=== PATIENT | female | born 1945 | race Caucasian/White ===

== ENCOUNTER 2020-05-22 06:16 | Day surgery (SDC) | payer MEDICARE ==
[2020-05-18 11:36] VITALS: BMI 25.2
[2020-05-22] MEDS ORDERED: SODIUM CHLORIDE 0.9% 1,000 ML in EMPTY BAG 1 BAG IV ONE (06:18)
[2020-05-22] MEDS ORDERED: NITROGLYCERIN SL TABS 0.4 MG TAB SUBLINGUAL PRN (06:18)
[2020-05-22] MEDS ORDERED: ALPRAZolam 0.5 MG TAB PO PRN (06:18)
[2020-05-22] MEDS ORDERED: ALPRAZolam 0.25 MG TAB PO PRN (06:18)
[2020-05-22] MEDS ORDERED: ATORVASTATIN 80 MG TAB PO ONE (07:00)
[2020-05-22] MEDS ORDERED: ASPIRIN 325 MG TAB PO ONE (07:00)
[2020-05-22 07:03] VITALS: RESP 16; TEMP 98.2
[2020-05-22 07:03] LABS: Anisocytosis Slight; Basophils # (A) 0.1 k/uL (0-0.2); Basophils % (A) 1 %; Eosinophils # (A) 0.3 k/uL (0-0.7); Eosinophils % (A) 3 %; HCT 37.4 % (34.0-46.0); HGB 11.6 gm/dL (11.4-16.0); Hypochromasia Marked; Lymphocytes # (A) 4.1 k/uL (1.0-4.8); Lymphocytes % (A) 42 %; MCH 28.5 pg (25.0-35.0); MCV 91.8 fL (80.0-100.0); Mean Platelet Volume 8.2; Monocytes # (A) 0.7 k/uL (0-1.0); Monocytes % (A) 8 %; Neutrophils # (A) 4.3 k/uL (1.3-7.7); Neutrophils % (A) 45 %; Platelet Count 399 k/uL (150-450); RBC 4.08 m/uL (3.80-5.40); RDW 18.8 % (11.5-15.5); WBC 9.7 k/uL (3.8-10.6)
[2020-05-22] MEDS ORDERED: SODIUM CHLORIDE 0.9% 100 ML IV ONE (07:07)
[2020-05-22 07:12] LABS: Calcium 9.1 mg/dL (8.4-10.2); Potassium 4.4 mmol/L (3.5-5.1)
[2020-05-22] MEDS ORDERED: fentaNYL (PF) 50 MCG/ML 2 ML AMP ONE (07:14)
[2020-05-22] MEDS ORDERED: BENZOCAINE SPRAY 1 CAN MUCOUS MEM ONE ×2 (07:23)
[2020-05-22] MEDS ORDERED: IV FLUID CONTINUATION 1,000 ML IV ONE (07:24)
[2020-05-22] MEDS ORDERED: fentaNYL (PF) 50 MCG/ML 2 ML AMP IV ONE (07:32)
[2020-05-22] MEDS ORDERED: MIDAZOLAM 2 MG/2 ML VIAL IV ONE (07:32)
[2020-05-22] MEDS ORDERED: LIDOCAINE 1% INJ 10MG/ML (20 ML MDV) ONE (07:40)
[2020-05-22] MEDS ORDERED: IV FLUID CONTINUATION 900 ML IV ONE (07:59)
[2020-05-22] MEDS ORDERED: LIDOCAINE 1% INJ 10MG/ML (20 ML MDV) SQ ONE (08:01)
[2020-05-22] MEDS ORDERED: IOPAMIDOL-370 100ML BTL INJ ONE (08:11)
[2020-05-22] MEDS ORDERED: RX INFO: IV CONTRAST WAS GIVEN 1 EACH MISC MISCELLANE PRN (08:20)
[2020-05-22] MEDS ORDERED: SODIUM CHLORIDE 0.9% 1,000 ML IV SCH (08:30)
--- NOTE | 2020-05-22 08:58 | CC ---
CARDIAC CATHETERIZATION REPORT REFERRING PHYSICIAN: Dr. Zully Yanez. INDICATION: Aortic stenosis. PROCEDURE NOTE: After obtaining informed consent, left heart catheterization and coronary angiogram were performed via the right femoral artery using standard Vineet catheters. Patient tolerated the procedure well without any obvious immediate complication. A femoral angiogram was performed and Angio-Seal will be deployed for hemostasis. Patient received moderate conscious sedation. Total sedation time was 15 minutes. FINDINGS: HEMODYNAMICS: Left ventricular end-diastolic pressure is 18 mm. There is a peak to peak gradient of 23 mm across the valve. LEFT VENTRICULOGRAM: Not performed. ANGIOGRAPHIC DATA: LEFT MAIN CORONARY ARTERY: Left main coronary artery is a normal-sized vessel and is free of stenosis. Divides into left anterior descending coronary artery and circumflex coronary artery. LAD and its branches, circumflex coronary artery and its branches are free of significant stenosis. Right coronary artery is a large dominant vessel and is free of significant disease. CONCLUSIONS: 1. No significant coronary artery disease. 2. Mild to moderate aortic stenosis. PLAN: I reviewed angiographic data with the patient and advised her on continued watchful waiting at this time. We are over-estimating the degree of aortic stenosis on the transthoracic echo. MMODL / IJN: [id number] /
--- NOTE | 2020-05-22 09:13 | ECHOT ---
TRANSESOPHAGEAL ECHOCARDIOGRAM REFERRING PHYSICIAN: Dr. Zully Yanez. INDICATION: Shortness of breath in a patient with known aortic stenosis. PROCEDURE NOTE: After obtaining informed consent, transesophageal echocardiogram is performed in left lateral position using an Omni plane probe. Local and IV sedation were obtained using Xylocaine spray, intravenous Versed and fentanyl. The patient tolerated the procedure well without any obvious immediate complications. FINDINGS: 1. Aortic valve: Aortic valve appears heavily calcified with mild to moderate restriction in leaflet mobility. It appears like a bicuspid aortic valve with poorly formed third leaflet that is heavily calcified. There is mild eccentric jet of aortic regurgitation noted by planimetry. The valve area comes around 1.5-1.6 squared cm. The valve area is not consistent with a gradient that we obtain on transthoracic echo. 2. Mitral valve: Mitral valve appears anatomically normal. There is moderate mitral regurgitation noted. 3. Tricuspid valve shows mild to moderate tricuspid regurgitation. 4. Interatrial septum: There is no evidence of [id number] shunt by color-flow Doppler or [id number]-qw-[id number] shunt by agitated saline contrast study. 5. Left atrium, right atrium, right ventricle are within normal limits. Left ventricle has normal size and systolic function. CONCLUSIONS: 1. Mild aortic stenosis with heavily calcified aortic valve without significant restriction in leaflet mobility. 2. Mild aortic regurgitation. 3. Moderate mitral regurgitation. 4. Normal left ventricular systolic function. PLAN: I advised the patient to undergo cardiac catheterization to rule out significant obstructive coronary artery disease, as her symptoms are not quite explained by the degree of underlying valvular heart disease. MMODL / IJN: [id number] /
[2020-05-22 12:18] VITALS: BP 136/60; PULSE 54
--- NOTE | 2020-05-24 10:04 | CDI ---
Outpatient Documentation Clarification Form Date: 05/24/20 CDS/Taco Maker Name: Jennifer Shelton Phone: If any questions, call Malia Ramirez Port Crane Operator at [phone] Patient Name: Lovely Schmidt Admit Date: 05/22/20 Discharge Date: 05/22/20 ATTENTION: The [facility] Coding Staff appreciate your assistance in clarifying documentation. Please respond to the clarification below the line at the bottom and electronically sign. The [facility] Coding staff will review the response and follow-up if needed. Please note: Queries are made part of the Legal Health Record. If you have any questions, please contact the Port Crane Operator. Dear Dr. Mari, Please provide clarification as to the procedure(s) performed. Charges indicate all three elements of the TERI was performed but there is no documentation on the report for the doppler pulse waive and velocity flow portions of the study. Please clarify. Thank you for your kind consideration. doppler pulse wave flow velocity was done on this study___ MTDD
== END 2020-05-22 13:43 | disposition home or self-care (01) ==
LOC: CATHCVL 06:16
PROVIDERS: ATTEND Internal Medicine Cardiovascular Disease
DX: I08.3 Combined rheumatic disorders of mitral, aortic and tricuspid valves (principal); I47.1 Supraventricular tachycardia; R93.1 Abnormal findings on diagnostic imaging of heart and coronary circulation; Z82.49 Family history of ischemic heart disease and other diseases of the circulatory system; Z79.82 Long term (current) use of aspirin; Z79.899 Other long term (current) drug therapy
CPT/HCPCS: 93312; 93320; 93325; 93458; 80048; 85025; C1769 ×2; C1760; C1894; J2250; J2001; J3010; Q9967

== ENCOUNTER → 2023-04-23 | Outpatient (CLI) | payer MEDICARE ==
[2023-04-23 09:36] LABS: Basophils # (A) 0.1 k/uL (0-0.2); Basophils % (A) 1 %; Eosinophils # (A) 0.2 k/uL (0-0.7); Eosinophils % (A) 2 %; HCT 40.5 % (34.0-46.0); HGB 12.9 gm/dL (11.4-16.0); Lymphocytes # (A) 3.8 k/uL (1.0-4.8); Lymphocytes % (A) 32 %; MCH 31.5 pg (25.0-35.0); MCV 98.4 fL (80.0-100.0); Mean Platelet Volume 8.5; Monocytes # (A) 0.8 k/uL (0-1.0); Monocytes % (A) 7 %; Neutrophils # (A) 7.1 k/uL (1.3-7.7); Neutrophils % (A) 58 %; Platelet Count 387 k/uL (150-450); RBC 4.11 m/uL (3.80-5.40); RDW 14.3 % (11.5-15.5); WBC 12.1 k/uL (3.8-10.6)
[2023-04-23 09:50] LABS: ALT 27 U/L (4-34); AST 29 U/L (14-36); African American GFR (CKD) >90 (>60 ml/min/1.73 sqM); Albumin/Globulin Ratio 1.5; Alkaline Phosphatase 79 U/L (38-126); Anion Gap 5 mmol/L; Blood Urea Nitrogen 19 mg/dL (7-17); Calcium 9.4 mg/dL (8.4-10.2); Carbon Dioxide 30 mmol/L (22-30); Chloride 104 mmol/L (98-107); Globulin 2.7 g/dL; Glucose 82 mg/dL (74-99); INR 0.9 (<1.2); Non-African American GFR(CKD) 78 (>60 ml/min/1.73 sqM); Partial Thromboplastin Time 25.4 sec (22.0-30.0); Potassium 4.7 mmol/L (3.5-5.1); Sodium 139 mmol/L (137-145); Total Bilirubin 0.5 mg/dL (0.2-1.3); Total Protein 6.7 g/dL (6.3-8.2)
[2023-04-23 09:51] LABS: Magnesium 2.2 mg/dL (1.6-2.3)
[2023-04-23 10:23] LABS: Appearance,Urine Clear (Clear); Bilirubin,Urine Negative (Negative); Blood,Urine Negative (Negative); Color,Urine Yellow; Glucose,Urine (UA) Negative (Negative); Ketones,Urine Negative (Negative); Leukocyte Esterase,Urine Negative (Negative); Nitrite,Urine Negative (Negative); Protein,Urine Negative (Negative); Specific Gravity,Urine 1.021 (1.001-1.035)
--- NOTE | 2023-04-23 11:48 | CT ---
EXAMINATION TYPE: CT TAVR Planning DATE OF EXAM: 04/23/2023 HISTORY: TAVR CT DLP: 1524.6 mGycm Automated Exposure Control for Dose Reduction was Utilized. CONTRAST: CT scan of the chest, abdomen and pelvis is performed with IV Contrast, patient injected with 125 mL of Isovue 370. COMPARISON: None TECHNIQUE: Helical imaging obtained through the chest, abdomen and pelvis during arterial phase alex diya administration of radiographic contrast intravenously. FINDINGS: See report from [employer] regarding preprocedural planning CHEST: Lower Neck and Thyroid: No significant findings Lungs: No significant findings Central Airway: No significant findings Pleura: No significant findings Pulmonary Arteries: No significant findings Heart and Pericardium: No significant findings Lymph Nodes: No significant findings Mediastinum & Esophagus: No significant findings ABDOMEN/PELVIS: Please note arterial phase of the imaging limits detailed evaluation of the solid abdominal organs. Liver: No significant findings Spleen: No significant findings Kidneys: No significant findings Adrenal Glands: No significant findings Pancreas: No significant findings Gallbladder: No significant findings Bowel and Mesentery: No significant findings Lymph Nodes: No significant findings Urinary Bladder: No significant findings Pelvic Organs: 4.2 cm left ovarian cyst. Consider ultrasound correlation. Other: No significant findings Other Lines/Tubes/Devices/Hardware: None IMPRESSION: 4.2 cm left ovarian cyst. Consider ultrasound correlation.
--- NOTE | 2023-04-23 13:29 | US ---
EXAMINATION TYPE: US carotid duplex BILAT DATE OF EXAM: 04/23/2023 COMPARISON: NONE CLINICAL INDICATION: Female, 78 years old with history of R55; PreOp for TAVR. No HTN. No tia. TECHNIQUE: Carotid duplex ultrasound examination. Indirect Doppler criteria was utilized. FINDINGS: EXAM MEASUREMENTS: RIGHT: Peak Systolic Velocity (PSV) cm/sec ----- Right CCA: 63.6 ----- Right ICA: 91.8 ----- Right ECA: 55.7 ICA/CCA ratio: 1.4 RIGHT: End Diastole cm/sec ----- Right CCA: 19.1 ----- Right ICA: 33.5 ----- Right ECA: 0.0 LEFT: Peak Systolic Velocity (PSV) cm/sec ----- Left CCA: 81.2 ----- Left ICA: 100.8 ----- Left ECA: 71.3 ICA/CCA ratio: 1.2 LEFT: End Diastole cm/sec ----- Left CCA: 18.6 ----- Left ICA: 33.5 ----- Left ECA: 0.0 VERTEBRALS (direction of flow): Right Vertebral: Antegrade Left Vertebral: Antegrade Rhythm: Arrhythmia FRAME AND SCRAP CRUSHER NOTES: Bilateral wall thickening. Small amount of plaque in bilateral bulbs. No elevate d velocities or significant stenosis. IMPRESSION: No evidence for hemodynamically significant stenosis. Criteria for Assigning % of Stenosis / Diameter reduction (Estimation based on the indirect measurements of the internal carotid artery velocities (ICA PSV). 1. Normal (no stenosis)=ICA PSV < 125 cm/s: ratio < 2.0: ICA EDV<40 cm/s. 2. Less than 50% stenosis=ICA PSV < 125 cm/s: ratio < 2.0: ICA EDV<40 cm/s. 3. 50 to 69% stenosis=ICA PSV of 125 to 230 cm/s: ration 2.0 ? 4.0: ICA EDV 40-100 cm/s. 4. Greater than 70% stenosis to near occlusion= ICA PSV > 230 cm/s: ratio > 4.0: ICA EDV > 100 cm/s. 5. Near occlusion= ICA PSV velocities may be low or undetectable: variable ratio and ICA EDV. 6. Total occlusion=unable to detect flow.
[2023-04-23 16:20] LABS: NT-Pro-B-Type Natriuretic Pept 1000 pg/mL
[2023-04-23 16:53] LABS: Hepatitis A Antibody IgM Nonreactive; Hepatitis B Core IgM Nonreactive; Hepatitis B Surface Antigen Nonreactive; Hepatitis C IgG Antibody Nonreactive
[2023-04-23 21:16] LABS: Chol/HDL Ratio 3.56 Ratio; LDL Cholesterol,Calculated 143.6 mg/dL (0.0-131.0)
== END | disposition home or self-care (01) ==
LOC: LABWHC1 08:45
PROVIDERS: ATTEND Thoracic Surgery (Cardiothoracic Vascular Surgery)
DX: Z01.818 Encounter for other preprocedural examination (principal); Z51.81 Encounter for therapeutic drug level monitoring; I35.1 Nonrheumatic aortic (valve) insufficiency; I35.0 Nonrheumatic aortic (valve) stenosis; E87.8 Other disorders of electrolyte and fluid balance, not elsewhere classified; E11.9 Type 2 diabetes mellitus without complications; N28.9 Disorder of kidney and ureter, unspecified; E78.5 Hyperlipidemia, unspecified; E07.9 Disorder of thyroid, unspecified; R35.0 Frequency of micturition; Z79.899 Other long term (current) drug therapy; R58 Hemorrhage, not elsewhere classified; Z79.01 Long term (current) use of anticoagulants
CPT/HCPCS: 94150; 83880; 80061; 80053; 80074; 84443; 83735; 85025; 85610; 85730; 81003; 87086; 83036; 93880; 71275; 36415 ×2; 74174; 93005; Q9967

== ENCOUNTER → 2023-05-30 | Outpatient (CLI) | payer MEDICARE ==
[2023-05-30 10:14] LABS: INR 0.9 (<1.2); Partial Thromboplastin Time 24.9 sec (22.0-30.0); Prothrombin Time 10.1 sec (9.0-12.0)
[2023-05-30 12:47] LABS: HCT 38.6 % (37.2-46.3); HGB 12.3 d/dL (12.0-15.0); MCH 31.6 pg (27.0-32.0); MCHC 31.9 d/dL (32.0-37.0); MCV 99.2 FL (80.0-97.0); Mean Platelet Volume 11.3 FL (9.5-12.2); NRBC Per 100 WBC 0 X 10*3/uL (0.00-0.01); Platelet Count 353 X 10*3/uL (140-440); RBC 3.89 X 10*6/uL (4.10-5.20); RDW 14.6 % (11.5-14.5); WBC 11.18 X 10*3/uL (4.50-10.00)
[2023-05-30 12:56] LABS: ALT 42 U/L (8-44); AST 32 U/L (13-35); Albumin 3.9 d/dL (3.8-4.9); Albumin/Globulin Ratio 2.05 Ratio (1.60-3.17); Alkaline Phosphatase 70 U/L (41-126); BUN/Creat Ratio 17.62 Ratio (12.00-20.00); Blood Urea Nitrogen 14.1 mg/dL (9.0-27.0); Calcium 9.2 mg/dL (8.7-10.3); Carbon Dioxide 27.5 mmol/L (21.6-31.8); Chloride 107 mmol/L (96-109); Globulin 1.9 d/dL (1.6-3.3); Glucose 85 mg/dL (70-110); Potassium 4.6 mmol/L (3.5-5.5); Sodium 141 mmol/L (135-145); Total Bilirubin 0.4 mg/dL (0.3-1.2); Total Protein 5.8 d/dL (6.2-8.2)
== END | disposition home or self-care (01) ==
LOC: LABPAT 09:27
PROVIDERS: ATTEND Thoracic Surgery (Cardiothoracic Vascular Surgery)
DX: Z01.812 Encounter for preprocedural laboratory examination (principal); I35.0 Nonrheumatic aortic (valve) stenosis; Z79.899 Other long term (current) drug therapy
CPT/HCPCS: 80053; 85027; 85610; 85730

== ENCOUNTER 2023-06-03 07:46 | Inpatient (IN) | payer MEDICARE ==
[2023-06-03] MEDS ORDERED: ELECTROLYTE-A SOLUTION 1,000 ML with POTASSIUM CHLORIDE 100 MEQ, MAGNESIUM SULFATE 16 M... IV PRN ×5 (08:00)
[2023-06-03] MEDS ORDERED: ASPIRIN 325 MG TAB PO ONE (08:00)
[2023-06-03] MEDS ORDERED: INSULIN REGULAR 100 UNIT in SODIUM CHLORIDE 0.9% 100 ML IV PRN (08:00)
[2023-06-03] MEDS ORDERED: ATORVASTATIN 10 MG TAB PO ONE (08:00)
[2023-06-03] MEDS ORDERED: CLEVIDIPINE BUTYRATE 25 MG in EMPTY BAG 1 BAG IV PRN (08:00)
[2023-06-03] MEDS ORDERED: PROTAMINE SULFATE 250 MG in EMPTY BAG 1 BAG IV PRN (08:00)
[2023-06-03] MEDS ORDERED: METOPROLOL TARTRATE 25 MG TAB PO ONE (08:00)
[2023-06-03] MEDS ORDERED: TRANEXAMIC ACID 2,000 MG in SODIUM CHLORIDE 0.9% 80 ML IV PRN (08:00)
[2023-06-03] MEDS ORDERED: CLOPIDOGREL 75 MG TAB PO ONE (08:00)
[2023-06-03] MEDS ORDERED: NITROGLYCERIN-D5W PMX 25 MG/250 ML BTL IV PRN (08:00)
[2023-06-03] MEDS ORDERED: SODIUM CHLORIDE 0.9% 500 ML 500 ML INTRAARTER PRN (08:00)
[2023-06-03] MEDS ORDERED: LACTATED RINGERS 1,000 ML IV SCH ×2 (08:00→11:53)
[2023-06-03] MEDS ORDERED: SODIUM CHLORIDE 0.9% 1,000 ML IV ONE (08:11)
[2023-06-03 08:20] LABS: Glucose,Whole Blood 90 mg/dL (70-110)
[2023-06-03] MEDS ORDERED: MIDAZOLAM 2 MG/2 ML VIAL IV STA (09:13)
[2023-06-03] MEDS ORDERED: NEOSTIGMINE 1 MG/ML 10 ML VIAL ONE (09:54)
[2023-06-03] MEDS ORDERED: HEPARIN SODIUM,PORCINE 10,000 UNIT/ML 1 ML VIAL ONE (09:54)
[2023-06-03] MEDS ORDERED: PROTAMINE SULFATE 10 MG/ML 5 ML VIAL IV ONE (09:54)
[2023-06-03] MEDS ORDERED: SUCCINYLCHOLINE CHLORIDE 200 MG/10 ML VIAL IV ONE (09:54)
[2023-06-03] MEDS ORDERED: fentaNYL (PF) 50 MCG/ML 2 ML AMP ONE (09:54)
[2023-06-03] MEDS ORDERED: hydrALAZINE HCL 20 MG/ML 1 ML VIAL ONE (09:54)
[2023-06-03] MEDS ORDERED: LABETALOL SYRINGE 5 MG/ML (4 ML SYR) ONE (09:54)
[2023-06-03] MEDS ORDERED: PROPOFOL 10 MG/ML 20 ML VIAL IV ONE (09:54)
[2023-06-03] MEDS ORDERED: GLYCOPYRROLATE 0.2 MG/ML 2 ML VIAL ONE (09:54)
[2023-06-03] MEDS ORDERED: ROCURONIUM 10 MG/ML (5 ML VIAL) IV ONE (09:54)
[2023-06-03] MEDS ORDERED: LIDOCAINE 2% INJ 20 MG/ML (2 ML VIAL) ONE (09:54)
[2023-06-03] MEDS ORDERED: IOPAMIDOL-370 100ML BTL INJ ONE (10:50)
--- NOTE | 2023-06-03 11:31 | P.PCN ---
Date of Procedure: 06/03/23 Operative Findings: TRANSCATHETER AORITC VALVE REPLACEMENT OPERATIVE REPORT PROCEDURE PERFORMED: 1. Percutaneous Aortic Valve Implantation using a 29 mm Evolut Fx 2. Transesophageal echocardiography (performed by anesthesia) 3. Ultrasound guided access and repair of bilateral femoral artery access site by Perclose closure device. 4. Placement of temporary pacemaker wire. 5. Aortic root angiography INDICATIONS: 1. 78 year-old with a history of severe symptomatic aortic valve stenosis. The patient was experiencing shortness of breath consistent with NYHA class II PERFORMING PHYSICIANS: 1. Monico Laughlin MD Interventional Cardiology. 2. Gustavo Chou M.D., MD, Cardiothoracic Surgeon. SEDATION: General anesthesia provided by anesthesia, see separate note APPROACH: Bilateral femoral artery via percutaneous approach PROCEDURE DESCRIPTION: The patient was discussed at valve clinic with multidisciplinary approach with cardiothoracic surgeon as well as director of philanthropy and thought better treated with TAVR. Risks, benefits, and alternatives of the procedure had been explained to the patient who understood the risks and agreed to proceed. After consents were obtained, patient was brought to the transcatheter aortic valve implantation room in the cardiac farm laborer and general anesthesia was provided by the anesthesiologist (see separate report). Once full body sterile prep was performed, right subclavian venous access was obtained and a temporary pacemaker was screwed in, performed by cardiothoracic surgery. Pacing threshholds were checked and deemed appropriate. Next the left femoral artery waw accessed using a modified Seldinger technique, ultrasound guidance and micropuncture technique. A 6 Swiss Rabi sheath was placed in the left femoral artery. Next, a 6-Swiss pigtail catheter was advanced into the aorta and positioned in the aortic root, aortic root angiography was performed to determine optimal deployment angle. The right femoral artery was accessed using modified Seldinger technique, micropuncture technique and under direct ultrasound guidance. Femoral angiogram was done showing access in the common femoral artery and a 6Fr sheath was placed. Next preclose technique was performed using a [] Perclose. Next a 0.035 Safari wire was placed in the Aorta via a pigtail catheter. Next 14 Fr [place] sheath was placed. Next a 6F- AL1 catheter was advanced over a wire to the aortic root. A straight wire was advanced through the catheter and used to cross the severely stenotic valve. The AL1 was then exchanged for a 6Fr pigtail catheter and pressure measurements were obtained. The 0.035 Safari wire was then positioned in the apex. Next a 29 mm Evolut-Fx was advanced. The valve was then positioned across the aortic valve and confirmed with aortic root angiography. [The valve was initially partially deployed however needed repositioning and therefore was recaptured.] The valve was then deployed in proper position using slow deployment and with rapid pacing in conjuncture with aortic root angiography and TERI. The delivery system was withdrawn back into the arch and an aortic root injection in conjunction with TERI demonstrated a satisfactory result. There was moderate para valvular leak. The gradient across the valve was almost 18 mmHg on transgastric view was. At that point the right common femoral sheath was taken out and the right groin was closed using the two Perclose devices we initially placed with good hemostasis. Because the valve was constrained under fluoroscopy guidance and because of the gradient which was abnormal and the paravalvular leak which was moderate we decided to go ahead and do postdilatation of the valve. At that point we upgraded or 6-Swiss sheath over a stiff Safari wire into a 14-Swiss sheath. Subsequently the valve was crossed using pigtail catheter. After that we postdilated the valve using 24 mm balloon under rapid heart racing. Subsequently there was no evidence of any other significant abnormalities. And the paravalvular leak was improved as well as a gradient. Then we deployed 2 Perclose and we were able to achieve hemostasis. Please note that before we closed the left groin we did right common femoral artery angiogram from the left side and that showed good hemostasis on the right. There was also good hemostasis on the left. The procedure was completed was no complication The temporary venous pacemaker was sutured in place. The patient was then transported to the ICU in hemodynamically stable condition, requiring no pressor support. COMPLICATIONS: None RECOMMENDATIONS: The patient will be monitored in the ICU for hemodynamic and electrical stability. Patient will be on aspirin and Plavix.
[2023-06-03 11:50] LABS: Glucose,Whole Blood 106 mg/dL (70-110)
[2023-06-03] MEDS ORDERED: ALPRAZolam 0.25 MG TAB PO PRN (11:53)
[2023-06-03] MEDS ORDERED: ONDANSETRON 4 MG/2 ML VIAL IVP PRN (11:53)
[2023-06-03] MEDS ORDERED: ACETAMINOPHEN TAB 325 MG TAB PO PRN (11:53)
[2023-06-03] MEDS ORDERED: IPRATROPIUM-ALBUTEROL 3 ML NEB INHALATION PRN (11:53)
--- NOTE | 2023-06-03 11:53 | P.ANPRN ---
Procedure Note - Anesthesia - Invasive Line Left Arterial Line Time Out Performed: Yes Date of Procedure: 06/03/23 Location of Patient: PreOp Preparation: Sterile Prep, Sterile Dressing Arterial Line Location: Radial Ultrasound Used: No Purpose - Visualization and Identification of Vasculature: No Narrative: Central line placement per sterile protocol utilized. Informed consent obtained from the patient. Procedure was performed under complete aseptic precautions. The left wrist is slightly extended and placed on a roll of cloth. Radial artery palpated and appeared to have a intact collateral circulation. Front of the wrist was cleaned with ChloraPrep. It was draped and 2 mL of 1% lidocaine was infiltrated and ability into the front of the wrist. A 20-gauge two and half inch Arrow arterial catheter was inserted and a bright red blood/back was noticed. It was connected to the pressure monitoring line and the flashback was confirmed. The line was sutured into the skin. Tegaderm dressing was applied. Patient tolerated the procedure very well with no apparent complications. - TERI Intraop Pre Bypass TERI Intraop - Anesthesia Indication: Transcatheter aortic valve replacement Date of Procedure: 06/03/23 Pre-operative Diagnosis: Severe Aortic stenosis Post-operative Diagnosis: Severe aortic stenosis status post transcatheter aortic valve replacement Surgeon: Gustavo Chou Ejection Fraction: Normal Left Ventricle Hypertrophy: Yes R. Ventricle Function: Normal Aortic Valve: Severely calcified aortic valve noted. Mean gradient across the valve 62 mmHg and peak gradient 87 mmHg. Anatomy: Trileaflet Aortic Stenosis: Severe Aortic Regurgitation: Mild Mitral Stenosis: None Mitral Regurgitation: Mild Tricuspid Stenosis: None Tricuspid Regurgitation: Trace Pulmonic Stenosis: None Pulmonic Regurgitation: None R. Atrial Dilation: No R. Atrial PFO: No L. Atrial Dilation: No Aortic Dissection: No Aortic Calcification: None Plural Effusion: None - TERI Intraop Post Bypass TERI Intraop Post Bypass Procedure Performed: Transcatheter aortic valve replacement procedure Ejection Fraction: Normal Regional Wall Motion Abnormalities: None R. Ventricle Function: Normal Aortic Valve: Prosthetic aortic valve in situ. Appears to be seated well. Mean gradient across the valve 18 mmHg and peak gradient 37 mmHg. After the tweaking of the valve by the surgeons mean gradient came down to 7 mg hg and peak gradient 12 mm of Hg. Mild paravalvular leak seen which doesn't appear to be hemodynamically significant. Mitral Valve: Unchanged Tricuspid: Unchanged Pulmonic: Unchanged Aortic Dissection: No
--- NOTE | 2023-06-03 11:55 | P.OP ---
Date of Procedure: 06/03/23 Preoperative Diagnosis: Tricuspid aortic valve stenosis, symptomatic Postoperative Diagnosis: Same Procedure(s) Performed: Percutaneous transfemoral transcatheter aortic valve replacement with Medtronic 29 mm FX core valve Implants: 29 mm Medtronic FX core valve Anesthesia: GETA Surgeon: Gustavo Chou (Cardiovascular surgeon) Vault Worker #1: Monico Laughlin (boom boss) Vault Worker #2: Vini Harris (Nurse practitioner) Estimated Blood Loss (ml): 25 IV fluids (ml): 1,000 Pathology: none sent Condition: stable Disposition: ICU Indications for Procedure: 78-year-old female with symptomatic severe aortic stenosis. She was seen initially by Dr. Canseco who felt that she could either undergo surgery or transcatheter aortic valve replacement. Patient preferred the latter and was then seen in the high risk valve clinic where it was agreed that she would be offered transcatheter aortic valve replacement. She was scheduled electively. Operative Findings: Significant gradient across the aortic valve. Completion of the procedure initial TERI evaluation showed trivial aortic insufficiency however after further evaluation with transgastric views it was felt that the aortic insufficiency was more significant in the valve was somewhat under deployed. Following balloon valvuloplasty the valve appeared to be fully expanded and the previously noted aortic valvular insufficiency was resolved. There was no significant gradient across the valve. Description of Procedure: Patient was brought to the cardiac catheterization laboratory and placed supine on the table. Gen. anesthesia was induced and T probe was placed. The anterior torso and bilateral groins were sterilely prepped and draped. Right subclavian vein was punctured with an 18-gauge needle and a guidewire threaded into the right atrium. Introducer and dilator were placed in the screw-in ventricular lead was manipulated into the apex of the ventricle where it was screwed in. This showed excellent sensing and capture levels and was secured at the skin with 2-0 silk suture ligatures. Bilateral femoral access was obtained under ultrasound guidance. On the left long 6-Slovak sheath was placed up into the descending thoracic aorta. Through this a pigtail catheter was advanced into the noncoronary sinus of Valsalva. On the right femoral arterial access was obtained and a 6-Slovak sheath was placed. 2 Perclose devices were placed and the sheath upsized to 8. This was then exchanged for a 14-Slovak sheath over a stiff wire. Patient was systemically heparinized and a CTs maintained greater than 250. Aortic valve was crossed and a pigtail catheter placed at the apex of the ventricle. Pressure gradients were obtained. Safari wire was placed at the apex of the ventricle. 14-Slovak sheath was exchanged for a 29 mm Medtronic FX transcatheter aortic valve which had been appropriately loaded on the back table. This was advanced through the arterial system around the aortic arch and across the aortic valve. Was deployed under rapid ventricular pacing. Initial TERI evaluation showed good position of the valve with trivial aortic insufficiency. Valve deployment system was pulled back and heparin was reversed with protamine. 14-Slovak sheath was removed from the right groin and the 2 Perclose devices were deployed. This point was noted by anesthesia that transgastric view demonstrated higher than expected degree of gradient across the valve, there was mild to moderate aortic valvular insufficiency in the valve frame appeared suboptimally expanded. Was felt appropriate to do a balloon dilatation in order to obtain better expansion valve. Left 6-Slovak sheath was upsized to a full 14-Slovak sheath after placing 2 Perclose devices. Patient was re-systemically heparinized. Valve was crossed easily with a pigtail catheter in the Safari wire placed at the apex of the ventricle. Balloon dilatation was performed under rapid ventricular pacing with a 24 mm Z-Med balloon. This significantly improved the expansion of the valve frame, there was only trivial aortic insufficiency and the gradient resolved. Balloon was pulled back out and the 14-Slovak sheath removed and the 2 Perclose devices deployed. Pulses were excellent throughout. Patient was extubated and transferred to table condition.
[2023-06-03] MEDS ORDERED: FERROUS SULFATE 325 MG TAB PO SCH (12:00)
[2023-06-03 12:15] LABS: Basophils # (A) 0.1 k/uL (0-0.2); Basophils % (A) 1 %; Eosinophils # (A) 0.3 k/uL (0-0.7); Eosinophils % (A) 3 %; HCT 33.8 % (34.0-46.0); HGB 11.1 gm/dL (11.4-16.0); Lymphocytes # (A) 4.5 k/uL (1.0-4.8); Lymphocytes % (A) 39 %; MCH 32.7 pg (25.0-35.0); MCHC 32.9 g/dL (31.0-37.0); MCV 99.4 fL (80.0-100.0); Mean Platelet Volume 8.8; Monocytes # (A) 0.6 k/uL (0-1.0); Monocytes % (A) 5 %; Neutrophils # (A) 5.8 k/uL (1.3-7.7); Neutrophils % (A) 51 %; Platelet Count 272 k/uL (150-450); RBC 3.41 m/uL (3.80-5.40); RDW 14.6 % (11.5-15.5); WBC 11.4 k/uL (3.8-10.6)
--- NOTE | 2023-06-03 12:32 | XR ---
EXAMINATION TYPE: XR chest 1V portable DATE OF EXAM: 06/03/2023 COMPARISON: None INDICATION: Post cardiac surgery TECHNIQUE: Single frontal view of the chest is obtained. FINDINGS: The heart size is normal. The pulmonary vasculature is upper limits for normal. No focal consolidations are evident. There has been placement of a cardiac valve. IMPRESSION: 1. Postsurgical changes percutaneous cardiac valve procedure
[2023-06-03 12:43] LABS: INR 1.1 (<1.2); Prothrombin Time 11.5 sec (9.0-12.0)
[2023-06-03 12:52] LABS: Partial Thromboplastin Time >200.0 sec (22.0-30.0)
[2023-06-03] MEDS ORDERED: PROTAMINE SULFATE 10 MG/ML 5 ML VIAL IV STA (13:06)
[2023-06-03] MEDS ORDERED: PROTAMINE SULFATE 10 MG/ML 25 ML VIAL IV STA (13:11)
[2023-06-03] MEDS ORDERED: ACETAMINOPHEN IV (For NPO) 1,000 MG in EMPTY BAG 1 BAG IVPB STA (13:59)
[2023-06-03 14:00] LABS: Ionized Calcium 4.6 mg/dL (4.5-5.3)
[2023-06-03 14:47] VITALS: BMI 24.3
[2023-06-03 14:49] LABS: ALT 40 U/L (4-34); AST 48 U/L (14-36); African American GFR (CKD) >90 (>60 ml/min/1.73 sqM); Albumin 2.7 g/dL (3.5-5.0); Alkaline Phosphatase 61 U/L (38-126); Anion Gap 6 mmol/L; Blood Urea Nitrogen 14 mg/dL (7-17); Calcium 7.9 mg/dL (8.4-10.2); Carbon Dioxide 21 mmol/L (22-30); Chloride 111 mmol/L (98-107); Glucose 91 mg/dL (74-99); Non-African American GFR(CKD) 85 (>60 ml/min/1.73 sqM); Potassium 3.6 mmol/L (3.5-5.1); Sodium 138 mmol/L (137-145); Total Bilirubin 0.4 mg/dL (0.2-1.3)
[2023-06-03] MEDS ORDERED: BENZOCAINE/MENTHOL LOZENG 1 EACH LOZENGE MUCOUS MEM PRN (15:25)
[2023-06-03] MEDS ORDERED: CHOLECALCIFEROL 25 MCG (1000 IU) TABLET PO SCH (21:00)
[2023-06-03] MEDS ORDERED: SENNOSIDES-DOCUSATE SODIUM 1 EACH TAB PO SCH (21:00)
[2023-06-03] MEDS ORDERED: LORATADINE 10 MG TAB PO SCH (21:00)
[2023-06-03] MEDS ORDERED: traZODone HCL 50 MG TAB PO SCH (21:00)
[2023-06-03] MEDS ORDERED: DULoxetine HCL 60 MG CAPSULE.DR PO SCH (21:00)
[2023-06-03] MEDS: HEPARIN SODIUM,PORCINE/PF 5,000 UNIT/0.5 ML SYRINGE SQ SCH (23:24)
[2023-06-04 04:48] LABS: Basophils # (A) 0.1 k/uL (0-0.2); Basophils % (A) 0 %; Eosinophils # (A) 0.2 k/uL (0-0.7); Eosinophils % (A) 2 %; HCT 33.3 % (34.0-46.0); HGB 11.1 gm/dL (11.4-16.0); Lymphocytes # (A) 2.9 k/uL (1.0-4.8); Lymphocytes % (A) 23 %; MCH 33.3 pg (25.0-35.0); MCHC 33.2 g/dL (31.0-37.0); MCV 100.3 fL (80.0-100.0); Macrocytosis Slight; Mean Platelet Volume 8.5; Monocytes # (A) 0.7 k/uL (0-1.0); Monocytes % (A) 6 %; Neutrophils # (A) 8.6 k/uL (1.3-7.7); Neutrophils % (A) 68 %; Platelet Count 238 k/uL (150-450); RBC 3.32 m/uL (3.80-5.40); RDW 14.3 % (11.5-15.5); WBC 12.6 k/uL (3.8-10.6)
[2023-06-04 05:19] LABS: Ionized Calcium 4.8 mg/dL (4.5-5.3)
[2023-06-04 05:37] LABS: ALT 32 U/L (4-34); AST 34 U/L (14-36); African American GFR (CKD) >90 (>60 ml/min/1.73 sqM); Albumin 2.8 g/dL (3.5-5.0); Alkaline Phosphatase 57 U/L (38-126); Anion Gap 4 mmol/L; Blood Urea Nitrogen 15 mg/dL (7-17); Calcium 8.4 mg/dL (8.4-10.2); Carbon Dioxide 23 mmol/L (22-30); Chloride 110 mmol/L (98-107); Glucose 109 mg/dL (74-99); Magnesium 2.1 mg/dL (1.6-2.3); Non-African American GFR(CKD) 84 (>60 ml/min/1.73 sqM); Potassium 3.6 mmol/L (3.5-5.1); Sodium 137 mmol/L (137-145); Total Bilirubin 0.4 mg/dL (0.2-1.3)
[2023-06-04] MEDS ORDERED: Potassium Replacement Protocol 1 EACH MISC MISCELLANE PRN (05:45)
[2023-06-04] MEDS ORDERED: POTASSIUM CHLORIDE ER 20 MEQ TAB.ER PO SCH (06:00)
[2023-06-04] MEDS ORDERED: PANTOPRAZOLE 40 MG TABLET PO SCH (07:30)
--- NOTE | 2023-06-04 08:09 | XR ---
EXAMINATION TYPE: XR chest 1V portable DATE OF EXAM: 06/04/2023 6:25 AM COMPARISON: Chest radiographs from 06/03/2023 TECHNIQUE: XR chest 1V portable . CLINICAL INDICATION:Female, 78 years old with history of Post Operative Cardiac Surgery; FINDINGS: Lungs/Pleura: There is no evidence of pleural effusion, focal consolidation, or pneumothorax. Pulmonary vascularity: Unremarkable. Heart/mediastinum: Cardiomediastinal silhouette is prominent in size. Postsurgical changes from TAVR . Musculoskeletal: No acute osseous pathology. Other findings: Surgical clips and sutures material in the left upper quadrant redemonstrated. Lines/Tubes: Right subclavian approach cardiac pacemaking lead identified. IMPRESSION: Postsurgical changes without evidence for focal consolidation.
[2023-06-04] MEDS: HEPARIN SODIUM,PORCINE/PF 5,000 UNIT/0.5 ML SYRINGE SQ SCH (08:25)
[2023-06-04 08:39] VITALS: TEMP 98
[2023-06-04] MEDS ORDERED: APIXABAN 5 MG TAB PO SCH (09:00)
[2023-06-04] MEDS ORDERED: LATANOPROST 0.005% OPHTH DROPS 2.5 ML BTL BOTH EYES SCH (09:00)
[2023-06-04] MEDS ORDERED: MAGNESIUM HYDROXIDE 2,400 MG/30 ML CUP PO PRN (09:00)
[2023-06-04] MEDS ORDERED: ASPIRIN 81 MG PO SCH (09:00)
[2023-06-04] MEDS ORDERED: bisacodyL 10 MG SUPP RECTAL PRN (09:00)
[2023-06-04 10:21] VITALS: BP 143/65
--- NOTE | 2023-06-04 11:24 | CA ---
Transthoracic Echo Report Name: Lovely Schmidt Age: 78 Gender: F : 1945 Exam Date: 06/04/2023 07:27 Exam Location: [place] [facility] Ht (in): 64 Wt (lb): 141 Ordering Physician: Marcia Foster Attending/Referring Phys: [id number], Kristin Map Colorer April Mullen, RENNY Procedure CPT: Indications: post TAVR Cardiac Hx: Technical Quality: Good Contrast 1: Total Dose (mL): Contrast 2: Total Dose (mL): MEASUREMENTS (Male / Female) Normal Values 2D ECHO LV Diastolic Diameter PLAX 4.8 cm 4.2 - 5.9 / 3.9 - 5.3 cm LV Systolic Diameter PLAX 3.1 cm IVS Diastolic Thickness 1.1 cm 0.6 - 1.0 / 0.6 - 0.9 cm LVPW Diastolic Thickness 1.3 cm 0.6 - 1.0 / 0.6 - 0.9 cm LV Relative Wall Thickness 0.5 RV Internal Dim ED PLAX 3.0 cm LVOT Diameter 2.0 cm LA Systolic Diameter LX 4.1 cm 3.0 - 4.0 / 2.7 - 3.8 cm LV Diastolic Volume MOD 4C 98.2 cm??? LV Systolic Volume MOD 4C 37.8 cm??? LV Ejection Fraction MOD 4C 61.5 % LV Diastolic Length 4C 8.5 cm LV Systolic Length 4C 6.6 cm LV Diastolic Volume MOD 2C 99.0 cm??? LV Systolic Volume MOD 2C 36.7 cm??? LV Ejection Fraction MOD 2C 63.0 % LV Diastolic Length 2C 8.7 cm LV Systolic Length 2C 6.9 cm LA Volume 71.8 cm??? 18 - 58 / 22 - 52 cm??? M-MODE Aortic Root Diameter MM 2.8 cm MV E Point Septal Separation 0.4 cm DOPPLER AV Peak Velocity 191.4 cm/s AV Peak Gradient 14.7 mmHg AV Mean Velocity 112.2 cm/s AV Mean Gradient 5.9 mmHg AV Velocity Time Integral 38.8 cm LVOT Peak Velocity 135.5 cm/s LVOT Peak Gradient 7.3 mmHg AV Area Cont Eq pk 2.2 cm??? MV Area PHT 2.8 cm??? Mitral E Point Velocity 105.2 cm/s Mitral A Point Velocity 111.1 cm/s Mitral E to A Ratio 0.9 MV Deceleration Time 275.7 ms MV E' Velocity 6.0 cm/s Mitral E to MV E' Ratio 17.6 TR Peak Velocity 276.0 cm/s TR Peak Gradient 30.5 mmHg Right Ventricular Systolic Press 35.3 mmHg FINDINGS Left Ventricle Left ventricular ejection fraction is estimated at 55-60 %. Left ventricular cavity size normal. Mildly increased septal wall thickness. Mildly increased posterior wall thickness. Right Ventricle Normal right ventricular size. Mild pulmonary hypertension. Right Atrium Normal right atrial size. Left Atrium Mildly increased left atrial diameter. Moderately increased left atrial volume. Mildly increased left atrial area. Mitral Valve Mitral annular calcification. Trace mitral regurgitation. Aortic Valve Post TAVR AOV. Trace aortic regurgitation. Normal AOV peak gradient of 15 mmHg and a mean gradient of 6 mmHg. Peak velocity 191 cm/s Tricuspid Valve Structurally normal tricuspid valve. Mild tricuspid regurgitation. Pulmonic Valve Structurally normal pulmonic valve. Trace pulmonic regurgitation. Pericardium Normal pericardium. No pericardial effusion. Aorta Normal size aortic root and proximal ascending aorta. CONCLUSIONS 1. Normal left ventricle size and systolic function 2. Bioprosthetic aortic valve with mean gradient of 6 mmHg and trace aortic regurgitation 3. Mild tricuspid regurgitation and mild pulmonary hypertension Previewed by: Dr. Tru Taylor MD (Electronically Signed) Final Date: 04 June 2023 11:24
[2023-06-04 12:45] VITALS: PULSE 64; RESP 6
--- NOTE | 2023-06-04 13:24 | P.DS ---
Providers Date of admission: 06/03/23 07:46 Expected date of discharge: 06/04/23 Attending physician: Monico Laughlin Consults: 06/03/23 08:00 Consult to Anesthesia Routine Consulting Provider: Anesthesia,Services Consult Reason/Comments: Cardiac Surgery Pre-Op 06/03/23 08:07 Consult Physician Routine Consulting Provider: Gustavo Chou Consult Reason/Comments: post TAVR Do you want consulting provider notified?: Already Contacted Primary care physician: Zully Yanez Hospital Course: MEDICAL HISTORY: Calcified aortic valve with severe symptomatic aortic valve stenosis NYHA class III History of atrial fibrillation status post ablation, on Eliquis for anticoagulation on an outpatient basis History of paroxysmal supraventricular tachycardia Osteoarthritis History of anemia Restless leg syndrome Anxiety Lifetime nonsmoker 3 PROCEDURE: 1. Percutaneous aortic valve implantation using a 29 mm Medtronic Evolute FX under TERI and fluoroscopy guidance 2. Transesophageal echocardiography performed by anesthesia 3. Ultrasound-guided access and repair of bilateral femoral artery access site by Perclose closure device 4. Placement of temporary pacemaker wire 5. Aortic root angiography 6. Post-balloon aortic valvuloplasty with a 24 mm Z med balloon HISTORY OF PRESENT ILLNESS: This is an 78-year-old female patient who follows on an outpatient basis with Dr. Patino for her primary care and Dr. John Mari for her cardiology care. She has a known history of severe aortic stenosis and has been symptomatic with shortness of breath with minimal activity, lightheadedness as well as occasional chest tightness. She had been referred to structural heart clinic for evaluation for transcatheter aortic valve replacement after heart catheterization and transesophageal echocardiogram were completed. Echocardiography demonstrated systolic function with EF 55%, aortic valve area 0.91 cm with a peak/mean gradient 78/42 mmHg. Heart cath eterization showed mild nonobstructive coronary artery disease, 3+ aortic valve insufficiency, and a peak/mean gradient of 60/37 across aortic valve. After workup was completed an STS risk score was calculated along with incremental risk and the patient was felt to be an intermediate risk for surgical aortic valve replacement, therefore transcatheter aortic valve replacement was recommended. The usual course of TAVR was discussed in detail the patient, risks and benefits were reviewed, shared decision making between cardiology, surgery, and the patient/family took place, and the patient consented to proceed with the TAVR procedure. HOSPITAL COURSE: The patient was brought to the hospital on 06/03/2023, was taken to the extended stay area, prepared in the usual fashion, and subsequently taken to the cardiac catheterization laboratory where Dr. Laughlin and Dr. Chou completed a TAVR procedure under general anesthesia with fluoroscopy and TERI. The valve was deployed under rapid ventricular pacing and proceeded without event. At the end of the procedure there was peak/mean gradient of 36/18 mmHg on transgastric view, it also showed moderate paravalvular leak, and a post balloon aortic valvuloplasty with a 24 mm cemented balloon was completed. Post- balloon aortic valvuloplasty, and her hemodynamics were felt to be acceptable. Upon completion of the procedure the patient was extubated and she was transferred to the cardiovascular intensive care unit where she was recovered and monitored hemodynamically. Her oxygen was titrated down, she was tolerating an oral diet, her pain was controlled, follow-up TTE demonstrated a normal left ventricular systolic function with an ejection fraction of 55-60%, a post TAVR AOV with trace aortic valve regurgitation, normal AOV peak gradient of 15 mmHg, mean gradient of 6 mmHg and a peak velocity of 191 cm/s. She was ready to be discharged to home on postoperative day #1. She received written and verbal instruction regarding his medications, activity restrictions, signs and symptoms requiring physician notification, and follow-up appointments. Plan - Discharge Summary Discharge Rx Participant: No New Discharge Prescriptions: New Sennosides-Docusate Sodium [Senokot-S] 2 each PO HS PRN tab PRN Reason: Constipation Acetaminophen Tab [Tylenol] 650 mg PO Q4HR PRN tab PRN Reason: Fever And/ Or Mild Pain (1-3) Continue Latanoprost Ophth [Xalatan 0.005%] 1 drops BOTH EYES DAILY ALPRAZolam [Xanax] 0.25 mg PO DAILY PRN PRN Reason: Anxiety traZODone HCL 50 mg PO HS Loratadine [Claritin] 10 mg PO HS Cholecalciferol [Vitamin D3 (25 Mcg = 1000 Iu)] 2,000 unit PO HS Ferrous Sulfate [Iron] 325 mg PO MOWEFR Aspirin [Adult Low Dose Aspirin EC] 81 mg PO DAILY Apixaban [Eliquis] 5 mg PO BID DULoxetine HCL [Cymbalta] 60 mg PO HS rOPINIRole HCL [Requip] 0.5 mg PO HS Discharge Medication List ALPRAZolam [Xanax] 0.25 mg PO DAILY PRN 05/18/20 [History] Aspirin [Adult Low Dose Aspirin EC] 81 mg PO DAILY 05/18/20 [History] Cholecalciferol [Vitamin D3 (25 Mcg = 1000 Iu)] 2,000 unit PO HS 05/18/20 [History] Ferrous Sulfate [Iron] 325 mg PO MOWEFR 05/18/20 [History] Latanoprost Ophth [Xalatan 0.005%] 1 drops BOTH EYES DAILY 05/18/20 [History] Loratadine [Claritin] 10 mg PO HS 05/18/20 [History] traZODone HCL 50 mg PO HS 05/18/20 [History] Apixaban [Eliquis] 5 mg PO BID 04/06/23 [History] rOPINIRole HCL [Requip] 0.5 mg PO HS 04/06/23 [History] DULoxetine HCL [Cymbalta] 60 mg PO HS 05/28/23 [History] Acetaminophen Tab [Tylenol] 650 mg PO Q4HR PRN tab 06/03/23 [Rx] Sennosides-Docusate Sodium [Senokot-S] 2 each PO HS PRN tab 06/03/23 [Rx] Follow up Appointment(s)/Referral(s): Zully Yanez MD [Primary Care Provider] - As Needed Chidi Mari MD [STAFF PHYSICIAN] - 06/08/23 2:45 pm (Your appointment 06/08 is for groin check with Dr. Mari at [facility] in [facility]. You also have 30 day and 1 year follow up echo and appointments as scheduled: 30 day echo 08/14/23 @ 3:15 pm 30 day appointment w/ Dr. Mari 08/14/23 @ 3:15 pm 1 year echo 05/31/24 @ 1 pm 1 year appointment w/ Dr. Mari 05/31/24 @ 2:15 pm) Clinic,[facility] [NON-STAFF] - 08/06/23 10:00 am (you also have a TAVR clinic appointment 05/31/24 @ noon) Ambulatory/Diagnostic Orders: Complete Blood Count w/diff [LAB.AMB] Location: None Selected Complete Blood Count w/diff [LAB.AMB] Location: None Selected Comprehensive Metabolic Panel [LAB.AMB] Location: None Selected Comprehensive Metabolic Panel [LAB.AMB] Location: None Selected Activity/Diet/Wound Care/Special Instructions: DISCHARGE INSTRUCTIONS: 1. No driving for 1 week, or until physician gives their ok. 2. No lifting, pushing, or pulling more than 5-10 pounds for 1 week. 3. Hold both groins when you cough or sneeze for the next 2 weeks. Bruising is common, but report increased swelling, pain or fever >101F 4. Shower daily. No pool, hot tub, or bathtub for 1 week 5. No powders, lotions, ointments on incisions. 6. No straining, including for bowel movements. Use stool softner if necessary 7. Stairs are not an issue. Go slowly, using handrail and take 1 step at a time. Ambulate several times daily 8. Continue pain control per as needed orders. 9. Take only the medications listed on your discharge form 10. Eat low salt (limited to 2 grams or 2000 milligrams) daily, avoid adding salt, avoid canned/processed foods 11. Take your weight daily in the morning and record, bring with you to your follow up appointments 12. Keep all follow up appointments. You will need a valve clinic appointment at 30 days and 1 year post procedure for follow up 13. You have been referred to and are expected to begin Cardiac Rehab in approximately 4 weeks. 14. You will need antibiotics prior to any dental work, including cleanings, and any surgeries to prevent Endocarditis (bacterial infection in your heart) For any questions or concerns please call your valve coordinators: Marcia or Vijay @ Discharge Disposition: HOME SELF-CARE
== END 2023-06-04 13:30 | disposition home or self-care (01) | DRG 267 ==
LOC: 2ORMAIN 07:46 → 2SICU 11:29
PROVIDERS: ADMIT Internal Medicine Interventional Cardiology; ATTEND Internal Medicine Interventional Cardiology
PROC: B3101ZZ Fluoroscopy of Thoracic Aorta using Low Osmolar Contrast (ICD-10-PCS; 2023-06-03)
PROC: B246ZZ4 Ultrasonography of Right and Left Heart, Transesophageal (ICD-10-PCS; 2023-06-03)
PROC: B41F1ZZ Fluoroscopy of Right Lower Extremity Arteries using Low Osmolar Contrast (ICD-10-PCS; 2023-06-03)
PROC: 02RF38Z Replacement of Aortic Valve with Zooplastic Tissue, Percutaneous Approach (ICD-10-PCS; principal; 2023-06-03 10:20)
PROC: 5A1223Z Performance of Cardiac Pacing, Continuous (ICD-10-PCS; 2023-06-03 10:20)
DX: I35.2 Nonrheumatic aortic (valve) stenosis with insufficiency (principal); Z00.6 Encounter for examination for normal comparison and control in clinical research program; I25.10 Atherosclerotic heart disease of native coronary artery without angina pectoris; G25.81 Restless legs syndrome; I48.91 Unspecified atrial fibrillation; F41.9 Anxiety disorder, unspecified; I08.1 Rheumatic disorders of both mitral and tricuspid valves; D64.9 Anemia, unspecified; M19.90 Unspecified osteoarthritis, unspecified site; Z86.79 Personal history of other diseases of the circulatory system; Z79.01 Long term (current) use of anticoagulants
CPT/HCPCS: 71045; 80053; 82330; 83735; 85025; 85610; 85730; 86850; 86900; 86901; 93306; 93312; 93320; 93325

== ENCOUNTER → 2023-07-08 | Outpatient (CLI) | payer MEDICARE ==
[2023-07-08 12:29] LABS: Basophils # (A) 0.1 k/uL (0-0.2); Basophils % (A) 1 %; Eosinophils # (A) 0.2 k/uL (0-0.7); Eosinophils % (A) 2 %; HGB 12.6 gm/dL (11.4-16.0); Hypochromasia Slight; Lymphocytes # (A) 3.7 k/uL (1.0-4.8); Lymphocytes % (A) 37 %; MCH 32.2 pg (25.0-35.0); MCHC 32.3 g/dL (31.0-37.0); Mean Platelet Volume 8.1; Monocytes # (A) 0.7 k/uL (0-1.0); Monocytes % (A) 7 %; Neutrophils # (A) 5.2 k/uL (1.3-7.7); Neutrophils % (A) 51 %; Platelet Count 311 k/uL (150-450); RDW 13.9 % (11.5-15.5); WBC 10.1 k/uL (3.8-10.6)
[2023-07-08 12:45] LABS: ALT 45 U/L (4-34); AST 41 U/L (14-36); African American GFR (CKD) 83 (>60 ml/min/1.73 sqM); Albumin 3.4 g/dL (3.5-5.0); Albumin/Globulin Ratio 1.3; Alkaline Phosphatase 79 U/L (38-126); Anion Gap 3 mmol/L; Blood Urea Nitrogen 16 mg/dL (7-17); Calcium 9.3 mg/dL (8.4-10.2); Carbon Dioxide 30 mmol/L (22-30); Chloride 105 mmol/L (98-107); Globulin 2.6 g/dL; Glucose 88 mg/dL (74-99); Non-African American GFR(CKD) 72 (>60 ml/min/1.73 sqM); Potassium 4.7 mmol/L (3.5-5.1); Sodium 138 mmol/L (137-145); Total Bilirubin 0.6 mg/dL (0.2-1.3)
== END | disposition home or self-care (01) ==
LOC: LABWHC1 11:25
PROVIDERS: ATTEND Thoracic Surgery (Cardiothoracic Vascular Surgery)
DX: I35.0 Nonrheumatic aortic (valve) stenosis (principal)
CPT/HCPCS: 36415; 80053; 85025

== ENCOUNTER → 2024-05-17 | Outpatient (CLI) | payer MEDICARE ==
[2024-05-17 19:43] LABS: HCT 40.2 % (37.2-46.3); HGB 12.5 g/dL (12.0-15.0); MCHC 31.1 g/dL (32.0-37.0); MCV 99.8 FL (80.0-97.0); Mean Platelet Volume 10.3 FL (9.5-12.2); NRBC Per 100 WBC 0 X 10*3/uL (0.00-0.01); Platelet Count 460 X 10*3/uL (140-440); RBC 4.03 X 10*6/uL (4.10-5.20); RDW 14.6 % (11.5-14.5); WBC 16.34 X 10*3/uL (4.50-10.00)
[2024-05-17 20:35] LABS: Basophils # (M) 0.33 X 10*3/uL (0.00-0.10); Lymphocytes # (M) 5.23 X 10*3/uL (0.90-5.00); Monocytes # (M) 1.47 X 10*3/uL (0.20-1.00); Neutrophils % (M) 57 %; RBC Morphology Normal (Normal)
[2024-05-17 20:36] LABS: Eosinophils # (M) 0 X 10*3/uL (0.04-0.35); Neutrophils # (M) 9.31 X 10*3/uL (1.80-7.70)
[2024-05-17 21:53] LABS: BUN/Creat Ratio 18.62 Ratio (12.00-20.00); Blood Urea Nitrogen 14.9 mg/dL (9.0-27.0); Calcium 9.1 mg/dL (8.7-10.3); Chloride 108 mmol/L (96-109); Glucose 58 mg/dL (70-110); Potassium 4.6 mmol/L (3.5-5.5); Sodium 142 mmol/L (135-145)
== END | disposition home or self-care (01) ==
LOC: LABWHC1 14:59
PROVIDERS: ATTEND Thoracic Surgery (Cardiothoracic Vascular Surgery)
DX: I35.1 Nonrheumatic aortic (valve) insufficiency (principal)
CPT/HCPCS: 36415; 80048; 85025

== ENCOUNTER → 2024-08-24 | Day surgery (SDC) | payer MEDICARE ==
[2024-08-23 10:12] VITALS: BMI 22.4
[2024-08-24 06:53] VITALS: BP 151/77; PULSE 67; RESP 16; TEMP 97.5
== END ==
LOC: ORWHC2ENDO 06:29
PROVIDERS: ATTEND Internal Medicine Gastroenterology
DX: D50.9 Iron deficiency anemia, unspecified (principal)
CPT/HCPCS: 91110